=== PATIENT | female | born 1995 | race African-American/Black ===

== ENCOUNTER 2021-03-20 11:58 | Emergency (ER) | payer OTHER ==
[2021-03-20 12:15] VITALS: BP 113/62; PULSE 101; TEMP 98.1; BMI 28.0
[2021-03-21 06:07] LABS: SARS-CoV-2 NAA Detected (Not Detected)
== END 2021-03-20 13:30 | disposition home or self-care (01) ==
LOC: JER 11:58
DX: U07.1 COVID-19 (principal)
CPT/HCPCS: 87804; 99283-25; C9803; U0003; U0005

== ENCOUNTER 2023-02-17 05:31 | Emergency (ER) | payer OTHER ==
[2023-02-17 05:40] VITALS: RESP 20; TEMP 98.2; BMI 29.2
[2023-02-17] MEDS ORDERED: SODIUM CHLORIDE 1,000 ML IV STA (07:31)
[2023-02-17] MEDS ORDERED: KETOROLAC TROMETHAMINE 15 MG/ML VIAL IVPUSH ONE (07:32)
[2023-02-17] MEDS ORDERED: KETOROLAC TROMETHAMINE 15 MG/ML VIAL ONE (07:58)
[2023-02-17 08:19] LABS: EOS % 3.4 % (0-4.5); HEMATOCRIT 40.5 % (32.4-45.2); HEMOGLOBIN 13.5 GM/dL (10.7-15.3); LYMPH % 29.5 % (8-40); MCH 29.4 pg (25.7-33.7); MCHC 33.3 g/dl (32.0-36.0); MEAN CELL VOLUME 88.3 fl (80-96); MEAN PLT VOLUME 7.5 fl (7.5-11.1); NEUT % 61.1 % (42.8-82.8); PLATELET COUNT 382 10^3/uL (134-434); RBC 4.58 M/mm3 (3.60-5.2); RDW 13.6 % (11.6-15.6); WHITE BLOOD COUNT 8.8 K/mm3 (4.0-10.0)
[2023-02-17 08:30] LABS: EPI CELLS 3 /uL (0-25.1); HCG,QUALITATIVE URINE Negative; HYALINE CASTS 0 /uL (0-3.1); URINE APPEARANCE CLEAR; URINE BACTERIA 59 /uL (0-1359); URINE BILIRUBIN NEGATIVE (NEGATIVE); URINE COLOR YELLOW; URINE GLUCOSE (UA) NEGATIVE (NEGATIVE); URINE KETONE NEGATIVE (NEGATIVE); URINE LEUK ESTERASE NEGATIVE (NEGATIVE); URINE NITRITE NEGATIVE (NEGATIVE); URINE PROTEIN NEGATIVE (NEGATIVE); URINE RBC 12 /uL (0-23.9); URINE UROBILINOGEN 0.2 mg/dL (0.2-1.0); URINE WBC 1 /uL (0-25.8)
[2023-02-17 08:31] LABS: POTASSIUM 3.8 mmol/L (3.5-5.1)
[2023-02-17 08:33] LABS: ALBUMIN 4.1 g/dl (3.4-5.0); BLOOD UREA NITROGEN 7.5 mg/dL (7-18); CALCIUM 9.1 mg/dL (8.5-10.1)
[2023-02-17 08:36] LABS: CREATININE 0.7 mg/dL (0.55-1.3)
[2023-02-17 08:38] LABS: BILIRUBIN,TOTAL 0.4 mg/dL (0.2-1); TOT PROT 7.9 g/dl (6.4-8.2)
[2023-02-17 10:39] VITALS: BP 111/65; PULSE 93
== END 2023-02-17 10:39 | disposition home or self-care (01) ==
LOC: JER 05:31
PROC: 3E0333Z Introduction of Anti-inflammatory into Peripheral Vein, Percutaneous Approach (ICD-10-PCS; principal; 2023-02-17)
PROC: 3E0337Z Introduction of Electrolytic and Water Balance Substance into Peripheral Vein, Percutaneous Approach (ICD-10-PCS; 2023-02-17)
DX: R07.89 Other chest pain (principal); R42 Dizziness and giddiness; R20.2 Paresthesia of skin
CPT/HCPCS: 36415; 71046-TC-FY; 80053; 81003; 84484; 84703; 85025; 93005; 93010; 99285-25

== ENCOUNTER 2023-02-18 18:51 | Emergency (ER) | payer OTHER ==
[2023-02-18 19:01] VITALS: BP 129/77; PULSE 94; RESP 18; BMI 29.8
[2023-02-18 19:20] VITALS: TEMP 97.6
[2023-02-18] MEDS ORDERED: KETOROLAC TROMETHAMINE 30 MG/1 ML VIAL IM ONE (20:38)
[2023-02-18] MEDS ORDERED: KETOROLAC TROMETHAMINE 30 MG/1 ML VIAL ONE (21:02)
== END 2023-02-18 22:45 | disposition home or self-care (01) ==
LOC: JER 18:51
PROC: 3E0233Z Introduction of Anti-inflammatory into Muscle, Percutaneous Approach (ICD-10-PCS; principal; 2023-02-18)
DX: R42 Dizziness and giddiness (principal); R51.9 Headache, unspecified; Z20.822 Contact with and (suspected) exposure to COVID-19
CPT/HCPCS: 0241U-QW; 36415; 70450-TC; 84439; 84443; 93005; 93010; 99285-25

== ENCOUNTER 2023-02-28 19:29 | Emergency (ER) | payer OTHER ==
[2023-02-28 20:18] VITALS: BP 141/70; TEMP 98; BMI 29.2
[2023-02-28] MEDS ORDERED: ACETAMINOPHEN 1000 MG/100 ML BAG IVPB ONE (20:49)
[2023-02-28] MEDS ORDERED: LACTATED RINGERS SOLUTION 1000 ML INFUS.BAG IV ONE (20:49)
[2023-02-28] MEDS ORDERED: METOCLOPRAMIDE HCL INJECTION 10 MG/2 ML VIAL IVPUSH ONE (20:50)
[2023-02-28] MEDS ORDERED: ACETAMINOPHEN INJECTION 100 ML IVPB ONE (20:55)
[2023-02-28] MEDS ORDERED: METOCLOPRAMIDE HCL INJECTION 10 MG/2 ML VIAL ONE (20:55)
[2023-02-28 21:19] LABS: EOS % 5.8 % (0-4.5); HEMATOCRIT 38.3 % (32.4-45.2); LYMPH % 32.4 % (8-40); MCH 29.5 pg (25.7-33.7); MCHC 33.8 g/dl (32.0-36.0); MEAN CELL VOLUME 87.3 fl (80-96); MEAN PLT VOLUME 7.2 fl (7.5-11.1); MONO % 6.5 % (3.8-10.2); NEUT % 54.3 % (42.8-82.8); PLATELET COUNT 365 10^3/uL (134-434); RBC 4.39 M/mm3 (3.60-5.2); RDW 13.8 % (11.6-15.6); WHITE BLOOD COUNT 9.6 K/mm3 (4.0-10.0)
[2023-02-28 21:30] LABS: POTASSIUM 3.9 mmol/L (3.5-5.1)
[2023-02-28 21:32] LABS: ALBUMIN 3.9 g/dl (3.4-5.0); BLOOD UREA NITROGEN 7.6 mg/dL (7-18); CALCIUM 9.4 mg/dL (8.5-10.1); MAGNESIUM 1.9 mg/dL (1.8-2.4)
[2023-02-28 21:35] LABS: CREATININE 0.7 mg/dL (0.55-1.3)
[2023-02-28 21:37] LABS: BILIRUBIN,TOTAL 0.4 mg/dL (0.2-1); TOT PROT 7.3 g/dl (6.4-8.2)
[2023-02-28 22:30] VITALS: PULSE 92; RESP 16
== END 2023-02-28 23:20 | disposition home or self-care (01) ==
LOC: JER 19:29
PROC: 3E033NZ Introduction of Analgesics, Hypnotics, Sedatives into Peripheral Vein, Percutaneous Approach (ICD-10-PCS; principal; 2023-02-28)
PROC: 3E033GC Introduction of Other Therapeutic Substance into Peripheral Vein, Percutaneous Approach (ICD-10-PCS; 2023-02-28)
DX: R51.9 Headache, unspecified (principal); Z20.822 Contact with and (suspected) exposure to COVID-19
CPT/HCPCS: 0241U-QW; 36415; 80053; 83735; 84703; 85025; 99284-25

== ENCOUNTER 2023-03-18 17:52 | Emergency (ER) | payer OTHER ==
[2023-03-18 18:00] VITALS: BP 136/76; PULSE 96; RESP 19; TEMP 98.2; BMI 29.2
[2023-03-18] MEDS ORDERED: METOCLOPRAMIDE HCL INJECTION 10 MG/2 ML VIAL IVPB ONE (18:48)
[2023-03-18] MEDS ORDERED: SODIUM CHLORIDE 0.9% 1000 ML INFUS.BAG IV ONE (18:48)
[2023-03-18] MEDS ORDERED: MAG HYDROX/AL HYDROX/SIMETH -MYLANTA- ORAL SUSPENSION PO ONE (18:48)
[2023-03-18] MEDS ORDERED: METOCLOPRAMIDE HCL INJECTION 10 MG/2 ML VIAL ONE (19:36)
[2023-03-18] MEDS ORDERED: MAG HYDROX/AL HYDROX/SIMETH 30 ML UNIT-DOSE CUP ONE (19:37)
[2023-03-18 19:40] LABS: HEMATOCRIT 40.4 % (32.4-45.2); HEMOGLOBIN 13.5 GM/dL (10.7-15.3); MCHC 33.3 g/dl (32.0-36.0); MEAN PLT VOLUME 7.3 fl (7.5-11.1); PLATELET COUNT 404 10^3/uL (134-434); RBC 4.64 M/mm3 (3.60-5.2); RDW 13.4 % (11.6-15.6); WHITE BLOOD COUNT 8.4 K/mm3 (4.0-10.0)
[2023-03-18 19:59] LABS: POTASSIUM 4.4 mmol/L (3.5-5.1)
[2023-03-18 20:01] LABS: CALCIUM 9.4 mg/dL (8.5-10.1)
[2023-03-18 20:02] LABS: ALBUMIN 3.9 g/dl (3.4-5.0); BLOOD UREA NITROGEN 9.8 mg/dL (7-18)
[2023-03-18 20:05] LABS: CREATININE 0.8 mg/dL (0.55-1.3)
[2023-03-18 20:06] LABS: BILIRUBIN,TOTAL 0.3 mg/dL (0.2-1); TOT PROT 7.8 g/dl (6.4-8.2)
== END 2023-03-18 20:36 | disposition home or self-care (01) ==
LOC: JER 17:52
PROC: 3E033GC Introduction of Other Therapeutic Substance into Peripheral Vein, Percutaneous Approach (ICD-10-PCS; principal; 2023-03-18)
PROC: 3E033GC Introduction of Other Therapeutic Substance into Peripheral Vein, Percutaneous Approach (ICD-10-PCS; 2023-03-18)
DX: R07.89 Other chest pain (principal); R11.2 Nausea with vomiting, unspecified
CPT/HCPCS: 36415; 80053; 84484; 85027; 93005; 93010; 99284-25